=== PATIENT | male | born 1980 | race Caucasian/White ===

== ENCOUNTER 2023-01-10 23:11 | Emergency (ER) | payer MEDICARE, MEDICAID, SELFPAY ==
[2023-01-10 23:18] VITALS: BP 123/71; PULSE 89; RESP 17; TEMP 37.7; O2SAT 94; BMI 23.5
[2023-01-10 23:43] LABS: MANUAL DIFF FLAG NO
[2023-01-10 23:45] LABS: Basophils Percent Auto 0.1 % (0-2); Eosinophils Absolute Auto 0.2 X10*3/uL (0.0-0.4); Eosinophils Percent Auto 1.5 % (0-4); Hematocrit 37.2 % (42.0-52.0); Hemoglobin 11.6 g/dl (14.0-18.0); Imm Gran Abs Auto 0.02 X10*3/uL (0.00-0.03); Imm Gran Pct Auto 0.2 % (0.0-0.4); Lymphocytes Absolute Auto 2.4 X10*3/uL (1.2-4.9); Lymphocytes Percent Auto 21.9 % (20-40); Mean Corpuscular HGB Conc 31.2 g/dl (31.0-36.0); Mean Corpuscular Volume 89.6 fL (80.0-98.0); Mean Platelet Volume 9.6 fL (9.4-12.4); Monocytes Absolute Auto 1.1 X10*3/uL (0.1-1.2); Monocytes Percent Auto 9.9 % (2-11); Neutrophils Absolute Auto 7.1 x10*3/uL (2.0-8.3); Neutrophils Percent Auto 66.4 % (45-73); Platelet Count 204 X10*3/uL (160-400); Red Blood Count 4.15 X10*6/uL (4.60-5.80); Red Cell Distribution Width 14.8 % (11.0-16.0); White Blood Count 10.7 X10*3/uL (4.8-10.8)
[2023-01-10] MEDS: QUEtiapine Fumarate 200 MG TABLET PO (23:45)
--- NOTE | 2023-01-10 23:46 | ED_ITS ---
HPI - General Adult General Chief complaint: Psychiatric Symptoms Stated complaint: si Time Seen by Provider: 01/10/23 23:14 Source: patient Mode of arrival: EMS Limitations: no limitations History of Present Illness HPI narrative: 42-year-old male with history of psychiatric disorder, opioid abuse presents with suicidal ideation. Patient is requesting detox. His suicidal ideation is passive with no plan. Denies a history of suicide attempt. He has recently overdose approximately 3 days ago. He reports having a total of 11 overdoses in his lifetime. Patient describes his psychiatric and abuse symptoms as severe. There is no relieving facets. He describes that his symptoms are worsened with drug abuse. He is open to get clean so he can be a part of this child's life. Related Data Home Medications Medication Instructions Recorded Confirmed albuterol sulfate 90 mcg/actuation 2 puff inhalation Q4H PRN 01/10/23 01/10/23 aerosol inhaler (Ventolin HFA) Shortness Of Breath Or Wheezing buprenorphine 4 mg-naloxone 1 mg 5 mg sublingual BID 01/10/23 01/10/23 sublingual film (Suboxone) quetiapine 300 mg tablet 300 mg PO BEDTIME 01/10/23 01/10/23 Allergies Allergy/AdvReac Type Severity Reaction Status Date / Time Sulfa (Sulfonamide AdvReac Intermediate Rash Verified 01/10/23 23:18 Antibiotics) Review of Systems Review of Systems: CONSTITUTIONAL: Denies weight loss, fever and chills. HEENT: Denies changes in vision and hearing. RESPIRATORY: Denies SOB and cough. CV: Denies palpitations no CP. GI: Denies abdominal pain, nausea, vomiting and diarrhea. : Denies dysuria and urinary frequency. MSK: Denies myalgia and joint pain. SKIN: Denies rash and pruritus. NEUROLOGICAL: Denies headache and syncope. PSYCHIATRIC: recent changes in mood. anxiety and depression. All other ROS are negative unless in HPI PMFSH Social History Social History Alcohol intake: current Alcohol intake frequency: other Smoked in Last 30 Days: Yes Use of substances other than those prescribed or required for medical reasons: Yes Substance Use Type: Club/[employer] Drugs, Crack/Cocaine, Heroin, IV Drugs, Marijuana and Prescription Drugs Substance Use Frequency: Chronic Longstanding Last Used Substance: Just Prior to Admission Any prior treatment program specific to substance use: No Advance Directives: No Advance Directives Information Provided: Yes Healthcare Proxy: No Guardian: No Physical Exam ED Vital Signs: Vital Signs - 24 hr 01/11/23 18:15 01/11/23 22:48 01/12/23 05:32 Temperature 97.5 F 97.6 F 97.2 F Pulse Rate 57 67 60 Respiratory Rate 16 18 16 Blood Pressure 102/53 L 121/73 125/60 Pulse Oximetry 100 98 95 Oxygen Delivery Method Room Air Room Air Room Air BMI result Body Mass Index 23.5 GEN: Well developed, no acute distress, alert, oriented HEENT: Normocephalic, atraumatic, normal external ears, nose appears normal, poor dentition Eyes: Normal to appearance Neck: Supple, no lymphadenopathy Respiratory: Talks in complete sentences, no respiratory distress Extremities: No clubbing cyanosis or edema Neurologic: No focal neurologic deficits, cranial nerves 2-12 intact, gait abnormal psychomotor agitation Skin: No rash, fasciotomy scars bilateral calves Course Course Course Narrative: Patient presents with passive SI and substance abuse. Patient will need to be evaluated by our care team. Will order Seroquel 200 mg tonight. Reevaluation(s) Reevaluation #1: Patient is pending psychiatric evaluation. Will place patient and physician observation pending frequent re-evaluation and an appropriate disposition determination. Time: 23:50 Reevaluation #2: Patient seen by care team and will require inpatient a search Time: 19:00 Reevaluation #3: Patient will depression with polysubstance abuse, stable vital, awaiting for placement Time: 09:14 Medications Administered Discontinued Medications Generic Name Dose Route Start Last Admin Trade Name Shirley PRN Reason Stop Dose Admin Acetaminophen 650 mg 01/11/23 14:34 01/11/23 14:38 Acetaminophen 325 Mg Tablet PO 01/11/23 14:35 650 mg ONCE ONE Administration Quetiapine Fumarate 200 mg 01/10/23 23:31 01/10/23 23:45 Quetiapine Fumarate 200 Mg Tablet PO 01/10/23 23:32 200 mg ONCE ONE Administration Quetiapine Fumarate 200 mg 01/11/23 22:44 01/11/23 22:48 Quetiapine Fumarate 200 Mg Tablet PO 01/11/23 22:45 200 mg ONCE ONE Administration Medical Decision Making Medical Decision Making MDM Narrative: Patient presents with suicidal ideation. This is likely result of chronic substance abuse. He offers no plan. He is requesting help. He does have some forward thinking components to his psyche including wanting to be a part of his child's life. Patient's biggest risk is substance abuse with recent overdose accidentally. Patient will have routine laboratory analysis to rule out come morbid conditions. Care team evaluation be you ordered. Differential Diagnosis Differential Diagnoses: The differential diagnosis associated with the presentation includes (Depression, anxiety, mood disorder, bipolar disorder, substance abuse, suicidal ideation) Admission/Observation Consideration of admission/observation: Escalation of care including admission/observation considered Consult Healthcare Provider Management of the patient was discussed with: Behavioral Health Provider Lab Data [facility] Lab Attestation statement: I reviewed the patient's lab results. 01/10/23 23:38 01/10/23 23:38 Labs: Lab Results 01/10/23 01/10/23 01/10/23 Range/Units 23:38 23:38 23:38 WBC 10.7 (4.8-10.8) X10*3/uL RBC 4.15 L (4.60-5.80) X10*6/uL Hgb 11.6 L (14.0-18.0) g/dl Hct 37.2 L (42.0-52.0) % MCV 89.6 (80.0-98.0) fL MCH 28.0 (27.0-33.0) pg MCHC 31.2 (31.0-36.0) g/dl RDW 14.8 (11.0-16.0) % Plt Count 204 (160-400) X10*3/uL MPV 9.6 (9.4-12.4) fL Immature Gran % (Auto) 0.2 (0.0-0.4) % Neut % (Auto) 66.4 (45-73) % Lymph % (Auto) 21.9 (20-40) % [place] % (Auto) 9.9 (2-11) % Eos % (Auto) 1.5 (0-4) % Baso % (Auto) 0.1 (0-2) % Lymph # (Auto) 2.4 (1.2-4.9) X10*3/uL [place] # (Auto) 1.1 (0.1-1.2) X10*3/uL Eos # (Auto) 0.2 (0.0-0.4) X10*3/uL Baso # (Auto) 0.0 (0.0-0.2) X10*3/uL Abs Immat Gran (auto) 0.02 (0.00-0.03) X10*3/uL Absolute Neuts (auto) 7.1 (2.0-8.3) x10*3/uL Absolute Nucleated RBC 0.000 (0.0-0.012) X10*3/uL Nucleated RBC % (auto) 0.0 (0.0-0.2) /100WBC Sodium 139 (135-145) mmol/L Potassium 4.0 (3.3-5.1) mmol/L Chloride 103 (96-108) mmol/L Carbon Dioxide 23 (22-29) mmol/L Anion Gap 17 (12-20) BUN 21 H (9-16) mg/dL Creatinine 0.82 (0.5-1.4) mg/dL Estim Creat Clear Calc 110.8 Estimated GFR > 60 Random Glucose 66 (60-115) mg/dL Calcium 9.2 (8.4-10.2) mg/dL Total Bilirubin 1.6 H (0.0-1.0) mg/dL AST 28 (5-37) U/L ALT 21 (0-40) U/L Alkaline Phosphatase 72 (39-117) U/L Total Protein 7.4 (6.5-8.0) g/dL Albumin 4.2 (3.5-5.0) g/dL Urine Color Urine Appearance Urine pH (5.0-9.0) Ur Specific [place] (1.005-1.025) Urine Protein (Neg-Trace) mg/dL Urine Glucose (UA) (Negative) mg/dL Urine Ketones (Negative) mg/dL Urine Blood (Negative) Urine Nitrite (Negative) Ur Leukocyte Esterase (Negative) Urine Opiates Screen (Not Detect) Urine Fentanyl Screen (Not Detect) Ur Barbiturates Screen (Not Detect) Ur Phencyclidine Scrn (Not Detect) Ur Amphetamines Screen (Not Detect) U Benzodiazepines Scrn (Not Detect) Urine Cocaine Screen (Not Detect) U Marijuana (THC) Screen (Not Detect) Ethyl Alcohol < 10 mg/dL COVID-19 (LOTUS) Negative (Negative) COVID-19 Clin Com See Note 01/10/23 01/10/23 Range/Units 23:38 23:38 WBC (4.8-10.8) X10*3/uL RBC (4.60-5.80) X10*6/uL Hgb (14.0-18.0) g/dl Hct (42.0-52.0) % MCV (80.0-98.0) fL MCH (27.0-33.0) pg MCHC (31.0-36.0) g/dl RDW (11.0-16.0) % Plt Count (160-400) X10*3/uL MPV (9.4-12.4) fL Immature Gran % (Auto) (0.0-0.4) % Neut % (Auto) (45-73) % Lymph % (Auto) (20-40) % [place] % (Auto) (2-11) % Eos % (Auto) (0-4) % Baso % (Auto) (0-2) % Lymph # (Auto) (1.2-4.9) X10*3/uL [place] # (Auto) (0.1-1.2) X10*3/uL Eos # (Auto) (0.0-0.4) X10*3/uL Baso # (Auto) (0.0-0.2) X10*3/uL Abs Immat Gran (auto) (0.00-0.03) X10*3/uL Absolute Neuts (auto) (2.0-8.3) x10*3/uL Absolute Nucleated RBC (0.0-0.012) X10*3/uL Nucleated RBC % (auto) (0.0-0.2) /100WBC Sodium (135-145) mmol/L Potassium (3.3-5.1) mmol/L Chloride (96-108) mmol/L Carbon Dioxide (22-29) mmol/L Anion Gap (12-20) BUN (9-16) mg/dL Creatinine (0.5-1.4) mg/dL Estim Creat Clear Calc Estimated GFR Random Glucose (60-115) mg/dL Calcium (8.4-10.2) mg/dL Total Bilirubin (0.0-1.0) mg/dL AST (5-37) U/L ALT (0-40) U/L Alkaline Phosphatase (39-117) U/L Total Protein (6.5-8.0) g/dL Albumin (3.5-5.0) g/dL Urine Color Yellow Urine Appearance Clear Urine pH 5.5 (5.0-9.0) Ur Specific [place] 1.025 (1.005-1.025) Urine Protein Negative (Neg-Trace) mg/dL Urine Glucose (UA) Negative (Negative) mg/dL Urine Ketones Negative (Negative) mg/dL Urine Blood Negative (Negative) Urine Nitrite Negative (Negative) Ur Leukocyte Esterase Negative (Negative) Urine Opiates Screen Not Detected (Not Detect) Urine Fentanyl Screen POSITIVE H (Not Detect) Ur Barbiturates Screen Not Detected (Not Detect) Ur Phencyclidine Scrn Not Detected (Not Detect) Ur Amphetamines Screen Not Detected (Not Detect) U Benzodiazepines Scrn POSITIVE H (Not Detect) Urine Cocaine Screen POSITIVE H (Not Detect) U Marijuana (THC) Screen POSITIVE H (Not Detect) Ethyl Alcohol mg/dL COVID-19 (LOTUS) (Negative) COVID-19 Clin Com Tests considered The following testing was considered but not selected: EKG Prescription Management I considered prescription management with: Other (Psychiatric medications) Discharge Plan Discharge Clinical Impression: Suicidal ideation, Opioid abuse Patient Disposition: Still a Patient Prescriptions: No Action quetiapine 300 mg tablet 300 mg PO BEDTIME albuterol sulfate [Ventolin HFA] 90 mcg/actuation HFA aerosol inhaler 2 puff inhalation Q4H PRN (Reason: Shortness Of Breath Or Wheezing) buprenorphine-naloxone [Suboxone] 4-1 mg film 5 mg sublingual BID Interventions: [place]-Suicide Risk Severity Scale Last Done: 01/12/23 06:00
--- NOTE | 2023-01-10 23:46 | PC.NURSE ---
Patient is his room calm and quiet, snacking and refreshing, Seroquel 200 mg administered as ordered, labs completed/pending results, med rec completed/pending provider's approval, care consult ordered/pending evaluation, patient contracted for the safety, behavior non concerning, coherent, follows direction well, VSS, will continue to monitor.
[2023-01-10 23:54] LABS: Appearance Urine Clear; Color Urine Yellow; Glucose Urine UA Negative (Negative); Leukocyte Esterase Urine Negative (Negative); Nitrite Urine Negative (Negative); PH 5.5 (5.0-9.0); Specific Gravity - Urine 1.025 (1.005-1.025); Urine Blood Negative (Negative); Urine Ketones Negative (Negative); Urine Protein Negative (Neg-Trace)
[2023-01-10 23:57] LABS: Amphetamine Screen Urine Not Detected (Not Detect); Barbiturates, Urine Not Detected (Not Detect); Benzodiazepines Screen Urine POSITIVE (Not Detect); Cannabinoid Screen Urine POSITIVE (Not Detect); Cocaine Screen Urine POSITIVE (Not Detect); Fentanyl, urine POSITIVE (Not Detect); Opiate Screen Urine Not Detected (Not Detect); Phencyclidine Screen Urine Not Detected (Not Detect)
[2023-01-11 00:02] LABS: Alanine Aminotransferase 21 U/L (0-40); Albumin Level 4.2 g/dL (3.5-5.0); Alkaline Phosphatase 72 U/L (39-117); Anion Gap 17 (12-20); Aspartate Amino Transferase 28 U/L (5-37); Bilirubin Total 1.6 mg/dL (0.0-1.0); Blood Urea Nitrogen 21 mg/dL (9-16); Calcium 9.2 mg/dL (8.4-10.2); Carbon Dioxide 23 mmol/L (22-29); Chloride 103 mmol/L (96-108); Creatinine Clr Calc Pharmacy 110.8; Estimated Glomerular Filt Rate > 60; Ethanol < 10 mg/dL; Glucose Random 66 mg/dL (60-115); Sodium 139 mmol/L (135-145); Total Protein 7.4 g/dL (6.5-8.0)
[2023-01-11 00:03] LABS: COVID-19 Test Negative (Negative); IDNOW Serial# 6674DD1D
--- NOTE | 2023-01-11 13:03 | MHC.RECOVRN ---
Addendum entered by Elaine Olguin RN 01/11/23 15:08: This check writer salesperson met with patient to assess withdrawal, pt reports bodyaches, chills, not feeling good . Pt eyes closing during this writers assessment, patient asked about sedation, pt reports seroquel makes pt sleepy. Pt reminded when starts to feel worsening withdrawal to review with ED RN. Reviewed findings with ED Provider, Provider states going to order Tylenol for bodyaches. Original Note: This check writer salesperson met with patient, patient sleeping, awake to verbal command. Patient reports does not want to talk, as spoke with the other staff recently . Patient reports 1 bundle smoked daily heroin. Patient reports withdrawal currently, bodyaches, chills. This check writer salesperson reviewed no male detox beds open, the only possible facility that may have discharges today is [facility]. Patient reports, is not allowed at [facility] and does not want to go to that area . Reviewed discharge likely due to no male detox beds. Patient reports does not feel stable, having thoughts of self harm. CM aware.
[2023-01-11] MEDS: Acetaminophen 325 MG TABLET 650 MG PO (14:38)
--- NOTE | 2023-01-11 16:45 | PC.NURSE ---
Pt continues sleeping most all of this shift. Woke to talk about plan of care then back to bed. No s/s of discomfort, SI, SH, AVH noted. No dangerous behaviors noted.
[2023-01-11 18:15] VITALS: BP 102/53; PULSE 57; RESP 16; TEMP 36.4; O2SAT 100
[2023-01-11 22:48] VITALS: BP 121/73; PULSE 67; RESP 18; TEMP 36.4; O2SAT 98
[2023-01-11] MEDS: QUEtiapine Fumarate 200 MG TABLET PO (22:48)
--- NOTE | 2023-01-12 04:28 | PC.NURSE ---
Patient slept through the night, no distress observed/reported, disposition per care team is voluntary inpatient bed search, med rec completed/pending provider's approval, asymptomatic of withdrawal, behavior non concerning, VSS, will continue to monitor.
[2023-01-12 05:32] VITALS: BP 125/60; PULSE 60; RESP 16; TEMP 36.2; O2SAT 95
--- NOTE | 2023-01-12 13:02 | PC.NURSE ---
Pt in bed all shift. Ate very little Breakfast. Shower offered. Pt refused.
[2023-01-12 13:12] VITALS: BP 138/79; PULSE 83; RESP 16; TEMP 36.4; O2SAT 97
== END 2023-01-12 14:03 | disposition home or self-care (01) ==
PROVIDERS: Emergency Provider Emergency Medicine
DX: F33.1 Major depressive disorder, recurrent, moderate (principal); R45.851 Suicidal ideations; F11.10 Opioid abuse, uncomplicated; Z20.822 Contact with and (suspected) exposure to COVID-19; Z20.828 Contact with and (suspected) exposure to other viral communicable diseases; Z79.899 Other long term (current) drug therapy
CPT/HCPCS: 36415; 80053; 80307; 81003; 85025; 87635; 99285